=== PATIENT | female | born 1975 | race Caucasian/White ===

== ENCOUNTER → 2020-05-26 11:19 | Outpatient (BNVA) | payer OTHER, SELFPAY | PROVIDERS: PCP Family Medicine; Visit Provider Orthopaedic Surgery | DX: M75.42 Impingement syndrome of left shoulder (principal) | CPT/HCPCS: 20610; J1040 ==

== ENCOUNTER → 2020-07-21 09:04 | Outpatient (BNVA) | payer OTHER, SELFPAY | PROVIDERS: Visit Provider Orthopaedic Surgery | DX: Z76.89 Persons encountering health services in other specified circumstances (principal) ==

== ENCOUNTER 2020-07-30 06:13 | Day surgery (SDC) | payer OTHER, SELFPAY ==
[2020-07-27 08:05] VITALS: BMI 32.3
--- NOTE | 2020-07-29 11:47 | HO.ANESPROP2 ---
Documented by User: Kirstin Weldon 07/29/20 11:51 HPI - Anesthesia Eval Consult details Narrative: 45yo F for left Shoulder Arthroscopy,decompression subacromial, Fentanyl Allergy: Difficulty Breathing PMFSH Past Medical History Medical History Anemia Celiac disease GERD (gastroesophageal reflux disease) [place] disease History of headache History of postoperative nausea and vomiting Lab test negative for COVID-19 virus Personal history of tuberculosis Family History Family History Father No problems noted. Mother No problems noted. Surgical History Surgical History H/O colonoscopy History of esophagogastroduodenoscopy (EGD) Hx of tubal ligation Social History Social History Alcohol intake: current Alcohol intake frequency: a few times a month Smoking Status: Former smoker Tobacco Type: Cigarette Smoked in Last 30 Days: No Smoking Quit Date: 2002 Use of substances other than those prescribed or required for medical reasons: No Have you been hit, kicked, punched, or otherwise hurt by someone within the past year? If so, by whom?: No Advance Directives Information Provided: No Recently lost weight without trying: No Current occupation: Nurse Meds Allergies Allergy/AdvReac Type Severity Reaction Status Date / Time doxycycline Allergy Severe Anaphylaxis Verified 07/27/20 08:15 fentanyl Allergy Severe Difficulty Verified 07/27/20 08:15 Breathing penicillin G Allergy Intermediate Hives Verified 07/27/20 08:15 Sulfa (Sulfonamide Allergy Intermediate Hives Verified 07/27/20 08:15 Antibiotics) Home Medications Medication Instructions Recorded Confirmed Type ibuprofen PO 05/20/20 05/23/20 History dexmethylphenidate 25 mg 25 mg PO DAILY 05/26/20 History capsule,extended release -25 omeprazole 20 mg capsule,delayed 20 mg PO DAILY 05/26/20 07/27/20 History release cyclobenzaprine 1 tab PO BEDTIME PRN 07/27/20 07/27/20 History norgestimate-ethinyl estradiol 1 tab PO DAILY 12/07/20 12/07/20 History [Ortho Tri-Cyclen (28)] Exam Exam Date and Time: July 29, 2020 1147 Height,Weight and Vital Signs: Height 5 ft 6 in Weight 90.718 kg Assessment and Plan Assessment Anesthesia Assessment: Chart Reviewed Documented by User: Frankie Hendricks MD 07/30/20 10:36 HPI - Anesthesia Eval Consult details Narrative: Sensitive to opioids, not allergic per se PMFSH Past Medical History Medical History Anemia Celiac disease GERD (gastroesophageal reflux disease) [place] disease History of headache History of postoperative nausea and vomiting Lab test negative for COVID-19 virus Personal history of tuberculosis Family History Family History Father No problems noted. Mother No problems noted. Surgical History Surgical History H/O colonoscopy History of esophagogastroduodenoscopy (EGD) Hx of tubal ligation Social History Social History Alcohol intake: current Alcohol intake frequency: a few times a month Smoking Status: Former smoker Tobacco Type: Cigarette Smoked in Last 30 Days: No Smoking Quit Date: 2002 Use of substances other than those prescribed or required for medical reasons: No Have you been hit, kicked, punched, or otherwise hurt by someone within the past year? If so, by whom?: No Advance Directives Information Provided: No Recently lost weight without trying: No Current occupation: Nurse Meds Allergies Allergy/AdvReac Type Severity Reaction Status Date / Time doxycycline Allergy Severe Anaphylaxis Verified 07/27/20 08:15 fentanyl Allergy Severe Difficulty Verified 07/27/20 08:15 Breathing penicillin G Allergy Intermediate Hives Verified 07/27/20 08:15 Sulfa (Sulfonamide Allergy Intermediate Hives Verified 07/27/20 08:15 Antibiotics) Home Medications Medication Instructions Recorded Confirmed Type ibuprofen PO 05/20/20 05/23/20 History dexmethylphenidate 25 mg 25 mg PO DAILY 05/26/20 History capsule,extended release [id number] omeprazole 20 mg capsule,delayed 20 mg PO DAILY 05/26/20 07/27/20 History release cyclobenzaprine 1 tab PO BEDTIME PRN 07/27/20 07/27/20 History norgestimate-ethinyl estradiol 1 tab PO DAILY 07/27/20 07/27/20 History [Ortho Tri-Cyclen (28)] Assessment and Plan Assessment Anesthesia Assessment: Anesthesia Plan Discussed and Chart Reviewed Final Anesthetic Review NPO: Yes ASA Class: III Final Preanesthetic Review: No Changes in Pt Med Stat, Meds/Allgs Chart Reviewed, Consent Obtained/Reviewed and Anes Risks/Benef Reviewed Patient Risk: Intermediate Procedure Risk: Low Anesthetic Plan Anesthetic Plan: GA and Regional Block Disposition: Standard PACU
--- NOTE | 2020-07-29 14:30 | MHC.SHP ---
Pre-Procedural Eval Section A The patient is an INPATIENT: No Changes since office visit: No Cold of Flu in the past 2 weeks, No New Medical Problems, No Changes in Medication and No Patient answered all questions The History & Physical has been completed within 30 days and I have reviewed it.: Yes Section B Chief Complaint: impingement of left shoulder Allergies: Allergies Allergy/AdvReac Type Severity Reaction Status Date / Time doxycycline Allergy Severe Anaphylaxis Verified 07/27/20 08:15 fentanyl Allergy Severe Difficulty Verified 07/27/20 08:15 Breathing penicillin G Allergy Intermediate Hives Verified 07/27/20 08:15 Sulfa (Sulfonamide Allergy Intermediate Hives Verified 07/27/20 08:15 Antibiotics) Plan Patient has been examined and remains a candidate for the planned procedure
[2020-07-30] MEDS: Lactated Ringers 1,000 ML 100 ML IVCONT (07:00)
[2020-07-30 07:02] VITALS: BP 143/84; PULSE 88; RESP 20; TEMP 36.1
[2020-07-30] MEDS: Scopolamine 1.5 MG PATCH.TD.3 TRANSDERMA (07:08)
[2020-07-30 11:20] VITALS: BP 127/79; PULSE 97; RESP 16; TEMP 36.3; O2SAT 96
--- NOTE | 2020-07-30 11:21 | PM.PRCOR ---
Brief Operative Note Date of procedure: 07/30/20 Pre-op diagnosis: ROTATOR CUFF IMPINGEMNET LEFT SHOUDER Post-op diagnosis: same (WITH POSTERIOR LABRAL INJURY) Procedure: ARTHROSCOPIC SHOULDER SURGERY Anesthesia: GLMA and regional Surgeon: Mary Kay Cline Estimated blood loss (mL): 5 Pathology: none sent Condition: stable
[2020-07-30 11:25] VITALS: BP 134/89; PULSE 83; RESP 16; O2SAT 96
[2020-07-30] MEDS: Ketorolac Tromethamine 15 MG/ML VIAL IVPUSH (11:25)
[2020-07-30 11:30] VITALS: BP 120/34; PULSE 76; RESP 16; O2SAT 96
[2020-07-30 11:35] VITALS: BP 137/80; PULSE 75; RESP 16; O2SAT 97
[2020-07-30 11:50] VITALS: BP 143/68; PULSE 76; RESP 16; TEMP 36.3; O2SAT 96
--- NOTE | 2020-07-31 10:54 | OP_ITS ---
SURGEON: Mary Kay Cline MD PREOPERATIVE DIAGNOSIS: Rotator cuff impingement, left shoulder. POSTOPERATIVE DIAGNOSIS: PROCEDURE PERFORMED: 1. Glenohumeral arthroscopy and debridement of labrum. 2. Arthroscopic subacromial decompression, left shoulder. ESTIMATED BLOOD LOSS: COMPLICATIONS: ANESTHESIA: ASSISTANTS: SPECIMENS: POSTOPERATIVE DIAGNOSES: 1. Rotator cuff impingement, left shoulder. 2. Posterior labral injury, left shoulder. CLINICAL NOTE: This lady has had ongoing problems with pain and discomfort involving her left shoulder. She had failed nonoperative management. Therefore, after explaining the risks, benefits, and alternatives and answering all her questions, it was mutually agreed upon to carry out the following procedure. DESCRIPTION OF PROCEDURE: Under a regional block and general anesthetic, an EUA was performed and demonstrated full range of motion of the shoulder with no evidence of any instability. The patient was then placed in the right lateral decubitus position with the left arm up. The left shoulder was then prepped and draped in standard fashion. The arm was then placed in standard traction at 10 degrees of forward flexion, 35 degrees of abduction with approximately 12 pounds of traction. Surgical time-out was then performed. The patient was identified, procedure confirmed, site confirmed. Medical analogy and history were reviewed. No preoperative antibiotics were given. Standard DVT prophylaxis was in place. All other items were discussed and agreed upon. Standard posterior portal was established. The glenohumeral joint was entered atraumatically. Anterior portal was established from inside-out technique in standard fashion. Inspection of the joint demonstrated that the long head of the biceps was intact. The rotator cuff had some fraying, but was fully attached along the greater tuberosity posteriorly. There was a normal . The glenohumeral joint was intact. There was degenerative fraying of the posterior to superior and posterior aspect of the labrum. Using a full-radius resector, this was debrided. Now, the glenohumeral joint was intact. The undersurface of the rotator cuff was lightly debrided of loose fibers as well and therefore, we at this point terminated the glenohumeral portion of the procedure. Scope and instruments were withdrawn from the glenohumeral joint. The scope was reintroduced in the subacromial space. Starting with an Ultra-Cut followed by an ArthroCare and bur, the bursal tissue was cleared. The periosteum removed from the undersurface of the acromion. The AC joint was identified. The type 3 acromion was resected until the acromion was flat from anterior to posterior, medial to lateral with the appropriate amount of space for the rotator cuff. The distal end of the clavicle was then beveled. At this point, there was sufficient room for the rotator cuff. The CA ligament was released. All of the areas that could be cauterized , we then terminated the procedure. All scopes and instruments were withdrawn. Stab incisions were closed with interrupted 2-0 nylon. The arm was placed in the sling after it was taken out of traction. The patient's anesthesia was reversed and transferred supine to the room bed and taken to recovery room in good condition. Intraoperatively, there was minimal blood loss. No complications. MD ADRIANA Teran/EVETTE / [id number]
== END 2020-07-30 12:25 | disposition home or self-care (01) ==
PROVIDERS: PCP Family Medicine; Visit Provider Orthopaedic Surgery
PROC: (CPT 29805; principal; 2020-07-30 10:00)
DX: M75.42 Impingement syndrome of left shoulder (principal); M25.812 Other specified joint disorders, left shoulder; E80.4 Gilbert syndrome; D64.9 Anemia, unspecified; K90.0 Celiac disease; Z79.899 Other long term (current) drug therapy; Z87.891 Personal history of nicotine dependence; Z86.11 Personal history of tuberculosis; Z88.0 Allergy status to penicillin; Z88.2 Allergy status to sulfonamides
CPT/HCPCS: 29822; 29826; J0131; J0171; J1885; J2250; J2405; J3010

== ENCOUNTER → 2020-08-06 10:05 | Outpatient (BNVA) | payer OTHER, SELFPAY | PROVIDERS: PCP Family Medicine; Visit Provider Physician Assistant | DX: Z76.89 Persons encountering health services in other specified circumstances (principal) ==

== ENCOUNTER → 2020-09-01 10:35 | Outpatient (BNVA) | payer OTHER, SELFPAY | PROVIDERS: PCP Family Medicine; Visit Provider Orthopaedic Surgery | DX: Z76.89 Persons encountering health services in other specified circumstances (principal) ==

== ENCOUNTER 2020-11-27 03:52 | Emergency (ER) | payer OTHER, SELFPAY ==
--- NOTE | ~2020-11-27 | CT_ITS ---
EXAMINATION: CT ABDOMEN AND PELVIS WITH CONTRAST CLINICAL INFORMATION: Mid abdominal left lower quadrant pain COMPARISON: None available TECHNIQUE: Multidetector volumetric images were obtained from the superior aspect of the liver through the pubic symphysis following administration 85 mL of Omnipaque 350 intravenous contrast. Sagittal and coronal reformatted images were obtained on the technologist's workstation. Oral contrast: No This CT examination was performed using dose optimization techniques as appropriate, variously including the following: *Automated exposure control *Adjustment of mA and/or kV according to patient size (this includes techniques or standardized protocols for targeted exams where dose is matched to indication/reason for exam; i.e. extremities or head) *Use of iterative reconstruction technique DLP: 834 mGy-cm FINDINGS: LUNG BASES: The visualized lung bases are unremarkable. LIVER, GALLBLADDER, AND BILIARY TREE: Liver normal in size, contour and morphology. Diffuse hepatic steatosis. No focal liver lesions. No intra or extrahepatic biliary dilatation. Gallbladder unremarkable. PANCREAS: Unremarkable. SPLEEN: Unremarkable. ADRENAL GLANDS: Unremarkable. KIDNEYS AND URETERS: The kidneys are normal in size, shape, and attenuation. No hydronephrosis, hydroureter, or calculi seen. No perinephric stranding. BLADDER: Unremarkable. GASTROINTESTINAL TRACT: Scattered colonic diverticula are present. There is a short segment of the mid transverse colon demonstrating prominent submucosal edema and mild pericolic fat stranding centered about an inflamed diverticulum. Normal appendix. Stomach and small bowel unremarkable. ABDOMINAL WALL: No significant hernia is appreciated. LYMPH NODES: Normal. VASCULAR: Unremarkable. PELVIC VISCERA: Uterus and ovaries unremarkable. OSSEOUS STRUCTURES: Unremarkable. CT/CT abdomen pelvis w con IMPRESSION: Acute uncomplicated diverticulitis involving the mid transverse colon. Hepatic steatosis.
[2020-11-27 04:23] VITALS: BP 155/97; PULSE 103; RESP 15; TEMP 37; O2SAT 96; BMI 35.5
[2020-11-27 04:46] LABS: Basophils Percent Auto 0.3 % (0-2); Eosinophils Absolute Auto 0.1 X10*3/uL (0.0-0.4); Hematocrit 40.7 % (37-47); Hemoglobin 13.7 g/dl (12.0-16.0); Imm Gran Abs Auto 0.04 X10*3/uL (0.00-0.03); Imm Gran Pct Auto 0.3 % (0.0-0.4); Lymphocytes Absolute Auto 1.6 X10*3/uL (1.2-4.9); Lymphocytes Percent Auto 13.6 % (20-40); MANUAL DIFF FLAG NO; Mean Corpuscular HGB Conc 33.7 g/dl (31.0-35.0); Mean Corpuscular Hemoglobin 30.5 pg (27.0-33.0); Mean Corpuscular Volume 90.6 fL (80-98); Mean Platelet Volume 10.4 fL (9.4-12.3); Monocytes Absolute Auto 0.9 X10*3/uL (0.1-1.2); Monocytes Percent Auto 7.8 % (2-11); Neutrophils Absolute Auto 9.3 X10*3/uL (2.0-8.3); Platelet Count 224 X10*3/uL (160-400); Red Blood Count 4.49 X10*6/uL (4.20-5.50); Red Cell Distribution Width 11.9 % (11.0-16.0); White Blood Count 12.1 X10*3/uL (4.8-10.8)
--- NOTE | 2020-11-27 05:04 | ED.ABDPAIN ---
HPI - Abdominal Pain General Chief Complaint: Abdominal Pain Stated Complaint: ABD PAIN Time Seen by Provider: 11/27/20 04:15 Source: patient Mode of arrival: ambulatory History of Present Illness HPI narrative: This is a 45-year-old female with history of diabetes and celiac axis who presents with mild pain yesterday at mid abdomen, but then woke patient with significant nausea and increasing pain that is now described as constant nonradiating. She denies fevers but reports chills and denies any urinary pain/burning/frequency. In addition, she denies any constipation or diarrhea and states that she is no longer passing flatus. She denies any surgical abdomen history. Related Data Home Medications Medication Instructions Recorded Confirmed ibuprofen PO 05/20/20 05/23/20 dexmethylphenidate 25 mg 25 mg PO DAILY 05/26/20 capsule,extended release [id number] omeprazole 20 mg capsule,delayed 20 mg PO DAILY 05/26/20 07/27/20 release cyclobenzaprine 1 tab PO BEDTIME PRN 07/27/20 07/27/20 norgestimate-ethinyl estradiol 1 tab PO DAILY 07/27/20 07/27/20 [Ortho Tri-Cyclen (28)] Previous Rx's Medication Instructions Recorded methylprednisolone acetate 80 80 mg IM QAM #1 ml 05/26/20 mg/mL suspension for injection ibuprofen 800 mg PO Q8H #90 tab 07/30/20 oxycodone 10 mg PO 4-6XD #40 tab 07/30/20 ciprofloxacin HCl [Cipro] 500 mg PO Q12H 7 Days #14 tab 11/27/20 metronidazole [Flagyl] 500 mg PO Q8H 7 Days #21 tab 11/27/20 ondansetron HCl [Zofran] 4 mg PO Q8H PRN #7 tab 11/27/20 Allergies Allergy/AdvReac Type Severity Reaction Status Date / Time doxycycline Allergy Severe Anaphylaxis Verified 08/06/20 10:20 fentanyl Allergy Severe Difficulty Verified 08/06/20 10:20 Breathing penicillin G Allergy Intermediate Hives Verified 08/06/20 10:20 Sulfa (Sulfonamide Allergy Intermediate Hives Verified 08/06/20 10:20 Antibiotics) Review of Systems Review of Systems Pertinent positives and negatives as stated in HPI 10 point review of systems otherwise negative. Physical Exam Vital Signs: Vital Signs: Last Vital Signs Temp 98.8 F 11/27/20 05:27 Pulse 102 H 11/27/20 05:27 Resp 16 11/27/20 05:27 BP 148/85 H 11/27/20 05:27 Pulse Ox 98 11/27/20 05:27 Body Mass Index 35.5 VITAL SIGNS: Reviewed. GENERAL: Well developed, well nourished, in no acute distress. HEAD: Normocephalic/atraumatic NOSE: Nares patent bilateral OROPHARYNX: no oral lesions noted, posterior pharynx clear NECK: Supple, no adenopathy LUNGS: Normal breath sounds. SpO2<98> CARDIOVASCULAR: Regular rate and rhythm without noted murmurs, no JVD or lower extremity edema. ABDOMEN: Soft, tenderness in mid abdomen without rebound, distended with hypoactive bowel sounds. NEUROLOGIC: Alert and oriented x 4. Course Course Course Narrative: This is a 45-year-old female with history and clinical presentation suggestive of possible strangulated ventral hernia, less likely SBO, or possible diverticulitis. Review of all investigations with findings consistent with diverticulitis. Patient received pain medications, and initial antibiotics. She will be discharged home in stable condition the complete course antibiotics as well as an antiemetic. MDM - Abdominal Pain Lab Data Result diagrams: 11/27/20 04:40 11/27/20 04:40 Labs: Lab Results 11/27/20 11/27/20 11/27/20 Range/Units 04:40 04:40 04:40 WBC 12.1 H (4.8-10.8) X10*3/uL RBC 4.49 (4.20-5.50) X10*6/uL Hgb 13.7 (12.0-16.0) g/dl Hct 40.7 (37-47) % MCV 90.6 (80-98) fL MCH 30.5 (27.0-33.0) pg MCHC 33.7 (31.0-35.0) g/dl RDW 11.9 (11.0-16.0) % Plt Count 224 (160-400) X10*3/uL MPV 10.4 (9.4-12.3) fL Immature Gran % (Auto) 0.3 (0.0-0.4) % Neut % (Auto) 77.0 H (45-73) % Lymph % (Auto) 13.6 L (20-40) % [place] % (Auto) 7.8 (2-11) % Eos % (Auto) 1.0 (0-4) % Baso % (Auto) 0.3 (0-2) % Lymph # (Auto) 1.6 (1.2-4.9) X10*3/uL [place] # (Auto) 0.9 (0.1-1.2) X10*3/uL Eos # (Auto) 0.1 (0.0-0.4) X10*3/uL Baso # (Auto) 0.0 (0.0-0.2) X10*3/uL Abs Immat Gran (auto) 0.04 H (0.00-0.03) X10*3/uL Absolute Neuts (auto) 9.3 H (2.0-8.3) X10*3/uL Absolute Nucleated RBC 0.000 (0.0-0.012) X10*3/uL Nucleated RBC % (auto) 0.0 (0.0-0.2) /100WBC Hold Blue Top SEE NOTE Sodium 137 (135-145) mmol/L Potassium 4.2 (3.3-5.1) mmol/L Chloride 103 (96-108) mmol/L Carbon Dioxide 23 (22-29) mmol/L Anion Gap 15 (12-20) BUN 13 (9-16) mg/dL Creatinine 0.71 (0.5-1.4) mg/dL Estim Creat Clear Calc 120.4 Estimated GFR > 60 Random Glucose 176 H (60-115) mg/dL Calcium 9.2 (8.4-10.2) mg/dL Total Bilirubin 0.9 (0.0-1.0) mg/dL AST 30 (5-31) U/L ALT 46 H (0-31) U/L Alkaline Phosphatase 87 (39-117) U/L Total Protein 6.6 (6.5-8.0) g/dL Albumin 4.2 (3.5-5.0) g/dL Lipase 64 (8-78) U/L Urine Color Urine Appearance Urine pH (5.0-8.0) Ur Specific [place] (1.005-1.025) Urine Protein (NEG-TRACE) MG/DL Urine Glucose (UA) (NEG) MG/DL Urine Ketones (NEG) MG/DL Urine Blood (NEG) Urine Nitrite (NEG) Ur Leukocyte Esterase (NEG) Urine Test (NEGATIVE) 11/27/20 11/27/20 Range/Units 05:29 05:29 WBC (4.8-10.8) X10*3/uL RBC (4.20-5.50) X10*6/uL Hgb (12.0-16.0) g/dl Hct (37-47) % MCV (80-98) fL MCH (27.0-33.0) pg MCHC (31.0-35.0) g/dl RDW (11.0-16.0) % Plt Count (160-400) X10*3/uL MPV (9.4-12.3) fL Immature Gran % (Auto) (0.0-0.4) % Neut % (Auto) (45-73) % Lymph % (Auto) (20-40) % [place] % (Auto) (2-11) % Eos % (Auto) (0-4) % Baso % (Auto) (0-2) % Lymph # (Auto) (1.2-4.9) X10*3/uL [place] # (Auto) (0.1-1.2) X10*3/uL Eos # (Auto) (0.0-0.4) X10*3/uL Baso # (Auto) (0.0-0.2) X10*3/uL Abs Immat Gran (auto) (0.00-0.03) X10*3/uL Absolute Neuts (auto) (2.0-8.3) X10*3/uL Absolute Nucleated RBC (0.0-0.012) X10*3/uL Nucleated RBC % (auto) (0.0-0.2) /100WBC Hold Blue Top Sodium (135-145) mmol/L Potassium (3.3-5.1) mmol/L Chloride (96-108) mmol/L Carbon Dioxide (22-29) mmol/L Anion Gap (12-20) BUN (9-16) mg/dL Creatinine (0.5-1.4) mg/dL Estim Creat Clear Calc Estimated GFR Random Glucose (60-115) mg/dL Calcium (8.4-10.2) mg/dL Total Bilirubin (0.0-1.0) mg/dL AST (5-31) U/L ALT (0-31) U/L Alkaline Phosphatase (39-117) U/L Total Protein (6.5-8.0) g/dL Albumin (3.5-5.0) g/dL Lipase (8-78) U/L Urine Color YELLOW Urine Appearance CLEAR Urine pH 6.0 (5.0-8.0) Ur Specific [place] 1.025 (1.005-1.025) Urine Protein NEG (NEG-TRACE) MG/DL Urine Glucose (UA) 250 H (NEG) MG/DL Urine Ketones 40 (NEG) MG/DL Urine Blood NEG (NEG) Urine Nitrite NEG (NEG) Ur Leukocyte Esterase NEG (NEG) Urine Test NEGATIVE (NEGATIVE) Discharge Plan Discharge Clinical Impression: Diverticulitis Patient Disposition: Home, Self-Care Instructions: Diverticulitis (ED), Diverticulitis Diet (ED) Additional Instructions: Please follow-up with their primary care provider in 2-3 days for re-evaluation. We will need discussed possible follow-up colonoscopy in 6 weeks after clearing this episode of diverticulitis. Do not hesitate to return to the emergency department should you develop any acute worsening of symptoms. Prescriptions: New ciprofloxacin HCl [Cipro] 500 mg tablet 500 mg PO Q12H 7 Days Qty: 14 RF: 0 metronidazole [Flagyl] 500 mg tablet 500 mg PO Q8H 7 Days Qty: 21 RF: 0 ondansetron HCl [Zofran] 4 mg tablet 4 mg PO Q8H PRN (Reason: nausea and vomiting) Qty: 7 RF: 0 No Action cyclobenzaprine 10 mg tablet 1 tab PO BEDTIME PRN (Reason: Muscle Spasm) RF: 0 norgestimate-ethinyl estradiol [Ortho Tri-Cyclen (28)] 0.18/0.215/0.25 mg-35 mcg (28) Tablet 1 tab PO DAILY RF: 0 oxycodone 10 mg tablet 10 mg PO 4-6XD Qty: 40 RF: 0 ibuprofen 800 mg tablet 800 mg PO Q8H Qty: 90 RF: 2 ibuprofen PO RF: 0 methylprednisolone acetate [Depo-Medrol] 80 mg/mL suspension 80 mg IM QAM Qty: 1 RF: 0 Referrals: Radha Price, [facility] [Primary Care Provider] - 2 days (Re-evaluation after being diagnosed with diverticulitis on 11/27.) [facility] Past Medical History Source: nursing notes reviewed Medical History Anemia Celiac disease Celiac disease Diabetes GERD (gastroesophageal reflux disease) [place] disease History of headache History of postoperative nausea and vomiting Lab test negative for COVID-19 virus Personal history of tuberculosis Surgical History H/O colonoscopy History of esophagogastroduodenoscopy (EGD) Hx of tubal ligation Family History Family History Father No problems noted. Mother No problems noted. Social History Social History Alcohol intake: current Alcohol intake frequency: holidays/special occasions only Smoking Status: Never smoker Tobacco Type: Cigarette Use of substances other than those prescribed or required for medical reasons: No Advance Directives: No Current occupation: Nurse
[2020-11-27 05:19] LABS: Alanine Aminotransferase 46 U/L (0-31); Albumin Level 4.2 g/dL (3.5-5.0); Alkaline Phosphatase 87 U/L (39-117); Anion Gap 15 (12-20); Aspartate Amino Transferase 30 U/L (5-31); Bilirubin Total 0.9 mg/dL (0.0-1.0); Blood Urea Nitrogen 13 mg/dL (9-16); Calcium 9.2 mg/dL (8.4-10.2); Carbon Dioxide 23 mmol/L (22-29); Chloride 103 mmol/L (96-108); Creatinine Clr Calc Pharmacy 120.4; Estimated Glomerular Filt Rate > 60; Glucose Random 176 mg/dL (60-115); Lipase 64 U/L (8-78); Potassium 4.2 mmol/L (3.3-5.1); Sodium 137 mmol/L (135-145); Total Protein 6.6 g/dL (6.5-8.0)
[2020-11-27 05:27] VITALS: BP 148/85; PULSE 102; RESP 16; TEMP 37.1; O2SAT 98
[2020-11-27 05:35] LABS: Glucose Urine UA 250 MG/DL (NEG); Leukocyte Esterase Urine NEG (NEG); Nitrite Urine NEG (NEG); Specific Gravity - Urine 1.025 (1.005-1.025); Urine Blood NEG (NEG); Urine Ketones 40 MG/DL (NEG); Urine Protein NEG (NEG-TRACE)
[2020-11-27 05:38] LABS: Appearance Urine CLEAR; Color Urine YELLOW; UPreg QC Valid YES; Urine Pregnancy NEGATIVE (NEGATIVE)
[2020-11-27] MEDS: Ketorolac Tromethamine 15 MG/ML VIAL IVPUSH (05:46)
[2020-11-27] MEDS: 0.9 % Sodium Chloride 1,000 ML 999 ML IV (05:46)
[2020-11-27] MEDS: iohexoL 350 MG/ML 100 ML INFUS..BTL 85 ML IV (06:14)
[2020-11-27] MEDS: metroNIDAZOLE 500 MG TABLET PO (07:14)
[2020-11-27] MEDS: levoFLOXacin/D5W 500 MG/100 ML PIGGYBACK 100 MG IV (07:14)
== END 2020-11-27 08:22 | disposition home or self-care (01) ==
PROVIDERS: Emergency Provider Student in an Organized Health Care Education/Training Program; PCP Nurse Practitioner Family
DX: K57.32 Diverticulitis of large intestine without perforation or abscess without bleeding (principal); R10.9 Unspecified abdominal pain; R11.2 Nausea with vomiting, unspecified; Z79.899 Other long term (current) drug therapy
CPT/HCPCS: 36415; 74177; 80053; 81003; 81025; 83690; 85025; 96361; 96365; 96375; 99284; J1885; J1956; Q9967

== ENCOUNTER 2020-12-04 15:07 | Outpatient (REF) | payer OTHER, SELFPAY ==
--- NOTE | ~2020-12-04 | CT_ITS ---
EXAMINATION: CT ABDOMEN AND PELVIS WITH CONTRAST CLINICAL INFORMATION: Follow-up for diverticulitis COMPARISON: CT of the abdomen and pelvis 11/27/2020 TECHNIQUE: Multidetector volumetric images were obtained from the superior aspect of the liver through the pubic symphysis following administration 85 mL of Omnipaque 350 intravenous contrast. Sagittal and coronal reformatted images were obtained on the technologist's workstation. Oral contrast: No This CT examination was performed using dose optimization techniques as appropriate, variously including the following: *Automated exposure control *Adjustment of mA and/or kV according to patient size (this includes techniques or standardized protocols for targeted exams where dose is matched to indication/reason for exam; i.e. extremities or head) *Use of iterative reconstruction technique DLP: 806 mGy-cm FINDINGS: LUNG BASES: The visualized lung bases are unremarkable. LIVER, GALLBLADDER, AND BILIARY TREE: The liver is normal in and shape. Again demonstrated is diffusely decreased attenuation, compatible with hepatic steatosis. There are areas of focal sparing around the gallbladder fossa. No focal hepatic lesion or biliary ductal dilatation is present. The gallbladder is unremarkable with no evidence of radiopaque gallstones, gallbladder wall thickening, or obvious pericholecystic inflammatory changes. PANCREAS: Unremarkable. SPLEEN: Unremarkable. ADRENAL GLANDS: Unremarkable. KIDNEYS AND URETERS: The kidneys are normal in size, shape, and attenuation. No hydronephrosis, hydroureter, or calculi seen. No perinephric stranding. BLADDER: Unremarkable. GASTROINTESTINAL TRACT: The stomach and small bowel are normal. No evidence of obstruction. Normal appendix. Again demonstrated are scattered diverticula throughout the colon. Decreased amount of thickening and pericolic fat stranding around the mid transverse colon. ABDOMINAL WALL: No significant hernia is appreciated. LYMPH NODES: Normal. VASCULAR: Unremarkable. PELVIC VISCERA: The uterus and adnexa are unremarkable. OSSEOUS STRUCTURES: No acute or suspicious osseous abnormality. CT/CT abdomen pelvis w con IMPRESSION: Decreasing inflammation around the mid transverse colon at the site of uncomplicated diverticulitis as described on the prior study. No evidence of perforation or abscess formation. Redemonstration of hepatic steatosis.
[2020-12-04] MEDS: iohexoL 350 MG/ML 100 ML INFUS..BTL IV (17:47)
[2020-12-04] MEDS: Barium Sulfate Oral (Vanilla) 450 ML ORAL.SUSP 900 ML PO (17:49)
== END 2020-12-04 15:08 | disposition home or self-care (01) ==
LOC: HO.CT 15:07
PROVIDERS: Visit Provider Nurse Practitioner Primary Care
DX: K57.92 Diverticulitis of intestine, part unspecified, without perforation or abscess without bleeding (principal)
CPT/HCPCS: 74177; Q9967

== ENCOUNTER 2024-10-08 13:56 | Outpatient (REF) | payer OTHER, SELFPAY ==
--- OUTSIDE RECORDS SUMMARY | 2024-10-08 14:58 | XMS_ITS ---
Author Organization [facility] Address [address] [place] [address] Care Team Providers Care Template Inspector Name Role Phone ZachShruthi sheehan Primary Care Provider Derek William [phone] ALLERGIES Allergen (clinical drug ingredient) Drug/Non Drug Allergy documented on EMR Reaction Allergy Type Onset Date Status sulfacetamide Sulfacetamide Sodium Unknown Drug Allergy Active REASON FOR VISIT Patient presents today for a screening colon MEDICATIONS Medication SIG (Take, Route, Frequency, Duration) Notes Start Date End Date Status Dupixent 300 MG/2ML Subcutaneous for 28 Active Meloxicam 15 MG Oral for 30 Ac tive Omeprazole 20 MG TAKE 1 CAPSULE BY [facility] TWICE A DAY Orally Once a day Active Ozempic (2 MG/DOSE) 8 MG/3ML INJECT 2 MG EVERY WEEK BY SUBCUTANEOUS ROUTE Subcutaneous for 28 Active Biotin Active Aspirin 81 81 MG 1 tablet Orally Once a day for 30 day(s) Active Atorvastatin Calcium 40 MG 1 tablet Oral ly Once a day for 30 day(s) Active SOCIAL HISTORY Tobacco Use: Social History Observation Description Date Details (start date - stop date) Former Smoker NA - NA Sex Assigned At : Social History Observation Description Sex Assigned At Unknown Tobacco Use/Smoking Question Answer Notes Patient is a former smoker How long has it been since you last smoked? 5-10 years Alcohol Screen Question Answer Notes Did you have a drink contain ing alcohol in the past year? Yes How often did you have a dri nk containing alcohol in the past year? 2 to 4 times a month (2 points) How many drinks did you have on a typical day when you were drinking in the past year? 3 or 4 drinks (1 point) Points 3 Interpretation Positive PROBLEMS Problem Type ICD Code Onset Dates Problem Status W/U Status Risk SNOMED Code Notes Problem Constipation (K59.00) Active confirmed Constipation (42779776) Problem Screen for colon cancer (Z12.11) Active confirmed Screening fo r malignant neoplasm of colon (703954091) VITAL SIGNS BMI 32.91 kg/m2 10/08/2024 Blood pressure systolic 00 mm Hg 10/08/19 25 Blood pressure diastolic 00 mm Hg 025 Height 66.5 in 10/08/2024 Weight 207 lbs 10/08/2024 Encounters Encounter Location Date Provider Diagnosis [facility] [address] [place] [address] 10/08/2024 Derek Villaseñor Gastroesophageal ref lux disease, esophagitis presence not specified K21.9 ; Family history of colon cancer Z80.0 ; Celiac disease K90.0 ; Constipation K59.00 and Screen for colon cancer Z12.11 ASSESSMENTS Encounter Date Diagnosis Assessment Notes Treatment Notes Treatment Clinical Notes 10/08/2024 Gastroesophageal reflux disease, esophagitis presence not specified (ICD-10 - K21.9) 10/08/2024 Family history of colon cancer (ICD-10 - Z80.0) 10/08/2024 Celiac disease (ICD- 10 - K90.0) 10/08/2024 Constipation (ICD-10 - K59.00) We can try Linzess for constipation at some point if need be 10/08/2024 Screen for colon cancer (ICD-10 - Z12.11) Do not take the Ozempic for at least 7 days before the procedures Stop aspirin for 3 days before the procedures PLAN OF TREATMENT Treatment Notes Assessment Notes Constipation We can try Linzess f or constipation at some point if need be Screen for colon cancer Do not take the Ozempic for at least 7 days before the procedures Stop aspirin for 3 days before the procedures Pending Test Test Name Order Date CELIAC PANEL #10 10/08/2024 Future Test Test Name Order Date UPPER GI ENDOSCOPY 10/08/2024 COLONOSCOPY 10/08/2024 Next Appt Details Provider Name:Derek Villaseñor , 12/16/2024 02:40:00 PM, [address] [facility] , [place], [place], [phone],
--- OUTSIDE RECORDS SUMMARY | 2024-10-08 14:58 | XMS_ITS ---
Author Name [facility] Organization Unknown History of Medication Use Medication Directions Dispensed Refills Start Date End Date Stat us omeprazole 20 mg capsule,delayed release TAKE 1 CAPSULE BY MOUTH TWICE A DAY active fluconazole 150 mg tablet TAKE 1 TABLET BY MOUTH EVERY 72 HOURS 3 completed lidocaine (PF) 10 mg/mL (1 %) injection solution active dexmethylphenidate ER 15 mg capsule,extended release [id number] TAKE 1 CAPSULE BY MOUTH EVERY MORNING 3 completed Kenalog 40 mg/mL suspension for injection active towboat pilot covid-19 at-home test kit 3 active Kenalog 40 mg/mL suspension for injection Take 1 mL by injection route. 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
--- OUTSIDE RECORDS SUMMARY | 2024-10-08 14:58 | XMS_ITS | Patient Health Record ---
Author Organization [facility] Address [address] [place] [address] Care Team Providers Care Oracle Database Architect Name Role Phone IrmaShruthi calvert Primary Care Provider Derek William [phone] ALLERGIES Allergen (clinical drug ingredient) Drug/Non Drug Allergy documented on EMR Reaction Allergy Type Onset Date Status sulfacetamide Sulfacetamide Sodium Unknown Drug Allergy Active REASON FOR REFERRAL No Information MEDICATIONS Medication SIG (Take, Route, Frequency, Duration) Notes Start Date End Date Status Dupixent 300 MG/2ML Subcutaneous for 28 Active Meloxicam 15 MG Oral for 30 Ac tive Omeprazole 20 MG TAKE 1 CAPSULE BY [facility] TWICE A DAY Orally Once a day [...] W/U Status Risk SNOMED Code Notes Problem Gastroesophageal reflux disease, esophagitis presence not specified (K21.9) Active confirmed 462679208 Problem Rectal bleeding (K62.5) Active confirmed 60992430 Problem Family history of colon cancer (Z80.0) Active confirmed 386815025 Problem Elevated liver enzymes (R74.8) Active confirmed Elevated patricia er enzymes level (724742360) Problem Celiac disease (K90.0) Active confirmed 588562988 Problem Constipation (K59.00) Active confirmed Constipation (21890279) Problem Screen for colon cancer (Z12.11) Active confirmed Screening fo r malignant neoplasm of colon (769506217) VITAL SIGNS Blood pressure diastolic 00 mm Hg 10/08/2024 Height 66.5 in 10/08/2024 Blood pressure systolic 00 mm Hg 10/08/2024 Weight 207 lbs 10/08/2024 BMI 32.91 kg/m2 10/08/2024 Encounters Encounter Location Date Provider Diagnosis [facility] [address] [place] [address] 10/08/2024 Derek Villaseñor Gastroesophageal ref lux disease, [...] days before the procedures PLAN OF TREATMENT Pending Test Test Name Order Date LIVER PROFILE 06/25/2019 CELIAC PANEL #10 10/08/2024 Future Test Test Name Order Date UPPER GI ENDOSCOPY 06/25/2019 COLONOSCOPY 06/25/2019 UPPER GI ENDOSCOPY 10/08/2024 COLONOSCOPY 10/08/2024 Next Appt Details Provider Name:Derek Villaseñor , 12/16/2024 02:40:00 PM, [address] [place] [address] , [place], [place], [phone], Insurance Providers Payer Name Payer Address Payer Phone Subscriber Number Group Number Insured Name Patient Relationship to Insured Coverage Start Date Coverage End Date [facility] [address] [place] [phone] [id number] MEDELLINASHLEE HOLCOMB Self - patient is the insured [facility] [address] [place] [phone] [id number] ASHLEE MEDELLIN Self - patient is the insured 3 MEDICAL (GENERAL) HISTORY Medical History History ICD Code Denies [place],CVA,Lung disease,renal disease ADHD Celiac disease based on a ti ssue transglutaminase level of over 200 in 2017 with associated symptoms of diarrhea and joint swelling-she declined upper endoscopy at that time with Dr. Hillman. She finally went on a strict gluten-free diet in February of 2019 and a followup tissue transglutaminase antibody was only 1--her symptoms of diarrhea and joint problems resolved on a gluten-free diet as well GERD--EGD 08/2019 Gilbert's Disease NIDDM Diverticulitis 2019 Colonoscopy 08/2019 Narrowing of vertebrobasila r arteries ---dizziness, migraines---sees a neurologist and vascular surgeon--just being treated with aspirin 81mg--no sugery Surgical History Surgery Date(Month/Year) Tubal ligation 2003 shoulder decompression left
[2024-10-09 21:18] LABS: Gliadin Deamidated IgA Ab <1.0 U/mL; Gliadin Deamidated IgG Ab <1.0 U/mL
[2024-10-10 22:48] LABS: Endomysial IgA Antibody Negative (Negative)
[2024-10-10 23:44] LABS: Transglutaminase Ab IgG <1.0 U/mL; Transglutaminase IgA <1.0 U/mL
[2024-10-12 11:58] LABS: Immunoglobulin A 201 mg/dL (47-310)
== END 2024-10-08 13:57 | disposition home or self-care (01) ==
LOC: HO.LAB 13:56
PROVIDERS: PCP Nurse Practitioner Family; Visit Provider Internal Medicine
DX: K90.0 Celiac disease (principal)
CPT/HCPCS: 36415; 82784; 86231; 86258; 86364

== ENCOUNTER 2024-12-16 11:24 | Day surgery (SDC) | payer OTHER, SELFPAY ==
--- OUTSIDE RECORDS SUMMARY | 2024-10-17 13:28 | XMS_ITS | Patient Health Record ---
Author Organization [facility] Address [address] [place] [address] Care Team Providers Care Fuel Buyer Name Role Phone Shruthi Rosales Primary Care Provider Derek William [phone] ALLERGIES Allergen (clinical drug ingredient) Drug/Non Drug Allergy documented on EMR Reaction Allergy Type Onset Date Status sulfacetamide Sulfacetamide Sodium Unknown Drug Allergy Active RESULTS Component Value Reference Range Notes Immunoglobulin A Reviewed date:10/15/2024 06:52:28 PM Interpretation: Performing Lab:[address] [address] Notes/Report: Immunoglobulin A 201 47-310 mg/dL THIS TEST WAS PERFORMED AT: [facility] [address] [place] [phone] SOPHIE MORALEZ MD Transglutaminase Ab IgG Reviewed date:10/15/2024 06:52:34 PM Interpretation: Performing Lab:[address] [address] Notes/Report: Transglutaminase Ab IgG <1.0 Value Interpretation ----- <15.0 Antibody not detected > or = 15.0 Antibody detected THIS TEST WAS PERFORMED AT: [facility] [address] [place] [phone] SOPHIE MORALEZ MD Transglutaminase IgA Reviewed date:10/15/2024 06:52:39 PM Interpretation: Performing Lab:[facility] [address] Notes/Report: Transglutaminase IgA <1.0 Value Interpretation ----- <15.0 Antibody not detected > or = 15.0 Antibody detected THIS TEST WAS PERFORMED AT: [facility] [address] [place] [phone] SOPHIE MORALEZ MD Gliadin Ab Panel Reviewed date:10/15/2024 06:52:47 PM Interpretation: Performing Lab:[facility], [address] [place] [phone] Notes/Report: Gliadin Deamidated IgA Ab <1.0 Value Interpretation ----- <15.0 Antibody not detected > or = 15.0 Antibody detected Gliadin Deamidated IgG Ab <1.0 Value Interpretation ----- <15.0 Antibody not detected > or = 15.0 Antibody detected THIS TEST WAS PERFORMED AT: [facility] [address] [place] [phone] SOPHIE MORALEZ MD Endomysial IgA rflx Titer Reviewed date:10/15/2024 06:52:57 PM Interpretation: Performing Lab:[facility], [address] [place] [phone] Notes/Report: Endomysial IgA Antibody Negative Negative THIS TEST WAS PERFORMED AT: [facility]/[address] [address] BLAYNE TAVERA MD,PHD Endomysial Titer TNP REASON FOR REFERRAL No Information MEDICATIONS Medication SIG (Take, Route, Frequency, Duration) Notes Start Date End Date Status Linzess 145 MCG 1 capsule at least 3 0 minutes before the first meal of the day on an empty stomach Orally Once a day for 30 day(s) 10/13/2024 Active Dupixent 300 MG/2ML Subcutaneous for 28 Active Meloxicam 15 MG Oral for 30 Ac tive Omeprazole 20 MG TAKE 1 CAPSULE BY [facility] TWICE A DAY Orally Once a day [...] W/U Status Risk SNOMED Code Notes Problem Rectal bleeding (K62.5) Active confirmed 45356304 Problem Constipation (K59.00) Active confirmed Constipation (35606461) Problem Celiac disease (K90.0) Active confirmed 096271835 Problem Screen for colon cancer (Z12.11) Active confirmed Screening fo r malignant neoplasm of colon (693109529) Problem Elevated liver enzymes (R74.8) Active confirmed Elevated patricia er enzymes level (854328943) Problem Gastroesophageal reflux disease, esophagitis presence not specified (K21.9) Active confirmed 661438994 Problem Family history of colon cancer (Z80.0) Active confirmed 796547456 VITAL SIGNS Blood pressure diastolic 00 mm Hg 10/08/2024 Height 66.5 in 10/08/2024 Blood pressure systolic 00 mm Hg 10/08/2024 Weight 207 lbs 10/08/2024 BMI 32.91 kg/m2 10/08/2024 Encounters Encounter Location Date Provider Diagnosis [facility] [address] [place] [address] 10/08/2024 Derek Villaseñor Gastroesophageal ref lux disease, esophagitis presence not specified K21.9 ; Family history of colon cancer Z80.0 ; Celiac disease K90.0 ; Constipation K59.00 and Screen for colon cancer Z12.11 [facility] [address] [place] [address] 10/11/2024 Derek Villaseñor ASSESSMENTS Encounter Date Diagnosis Assessment Notes Treatment [...] COLONOSCOPY 10/08/2024 Next Appt Details Provider Name:Derek Giraldo Charleen , 12/16/2024 02:40:00 PM, [address] [place] [address] , [place], [place], [phone], Insurance Providers Payer Name Payer Address Payer Phone Subscriber Number Group Number Insured Name Patient Relationship to Insured Coverage Start Date Coverage End Date [address] [phone] [id number] ASHLEE MEDELLIN Self - patient is the insured [employer] [address] [place] [phone] [id number] ASHLEE MEDELLIN Self - patient is the insured 3 MEDICAL (GENERAL) HISTORY Medical History History ICD Code Denies [place],CVA,Lung disease,renal disease ADHD Celiac disease based on [...] sugery Surgical History Surgery Date(Month/Year) Tubal ligation 2002 shoulder decompression left
--- OUTSIDE RECORDS SUMMARY | 2024-10-17 13:28 | XMS_ITS ---
Author Organization [facility] Address [address] [place] [address] Care Team Providers Care Consumer Educator Name Role Phone ZachShruthi sheehan Primary Care Provider Derek William [phone] ALLERGIES Allergen (clinical drug ingredient) Drug/Non Drug [...] Omeprazole 20 MG TAKE 1 CAPSULE BY [facility] TWICE A DAY Orally Once a [...] Notes Problem Constipation (K59.00) Active confirmed Constipation (94586236) Problem Screen for colon cancer (Z12.11) Active confirmed Screening fo r malignant neoplasm of colon (530913927) VITAL SIGNS Blood pressure systolic 00 mm Hg 10/08/19 25 Blood pressure diastolic 00 mm Hg 025 Height 66.5 in 10/08/2024 Weight 207 lbs 10/08/2024 BMI 32.91 kg/m2 10/08/2024 Encounters Encounter Location Date Provider Diagnosis [facility] [address] [place] [address] 10/08/2024 Derek Villaseñor Gastroesophageal ref lux disease, [...] Name:Derek Villaseñor , 12/16/2024 02:40:00 PM, [address] [facility] , [place], [place], [phone],
--- OUTSIDE RECORDS SUMMARY | 2024-10-17 13:28 | XMS_ITS ---
Author Organization [facility] Address [address] [place] [address] Care Team Providers Care Ceramic Coater Name Role Phone ZachShruthi sheehan Primary Care Provider Derek William [facility] [phone] REASON FOR VISIT celiac negative MEDICATIONS Medication SIG (Take, Route, Fr equency, Duration) Notes Start Date End Date Status Linzess 145 MCG 1 capsule at least 3 0 minutes before the first meal of the day on an empty stomach Orally Once a day for 30 day(s) 10/13/2024 Active Encounters Encounter Location Date Provider Diagnosis [facility] [address] [place] [address] 10/11/2024 Derek Villaseñor PLAN OF TREATMENT Medication Medication Name Sig Start Date Stop Date Notes Linzess 145 MCG 1 capsule at least 3 0 minutes before the first meal of the day on an empty stomach Orally Once a day for 30 day(s) 10/13/2024 Next Appt Details Provider Name:Derek Villaseñor , 12/16/2024 02:40:00 PM, [address] [place] [address] , [place], [place], [phone],
[2024-12-12 14:27] VITALS: BMI 33.4
--- NOTE | 2024-12-13 09:33 | P.CONAN_ITS ---
Documented by User: Kirstin Weldon NP 12/13/24 09:36 HPI - Anesthesia Eval Consult details Narrative: 49yo F for Colonoscopy Anesthesia Pre-Procedure Meds Is the patient on any of the following meds?: GLP1/DPP4 PMFSH Active Problems Active Problems: All Active Problems S/P shoulder surgery (Acute) Rotator cuff impingement syndrome of left shoulder (Acute) Past Medical History Medical History (Updated 12/12/24 @ 14:25 by Nahed Cannon RN) Vertebral artery narrowing ADHD (attention deficit hyperactivity disorder) Celiac disease Diabetes History of postoperative nausea and vomiting Anemia GERD (gastroesophageal reflux disease) [place] disease History of headache Lab test negative for COVID-19 virus Personal history of tuberculosis Celiac disease Family History Family History Father No problems noted. Mother No problems noted. Surgical History Surgical History (Updated 12/12/24 @ 14:26 by Nahed Cannon RN) Hx of shoulder surgery Hx of tubal ligation History of esophagogastroduodenoscopy (EGD) H/O colonoscopy Social History Social History Alcohol intake: current Alcohol intake frequency: holidays/special occasions only Patient Tobacco Use Status: Never used Tobacco Use of substances other than those prescribed or required for medical reasons: No Advance Directives: No Advance Directives Information Provided: Yes Current occupation: Nurse Meds Allergies Allergy/AdvReac Type Severity Reaction Status Date / Time doxycycline Allergy Severe Anaphylaxis Verified 08/06/20 10:20 penicillin G Allergy Intermediate Hives Verified 08/06/20 10:20 Sulfa (Sulfonamide Allergy Intermediate Hives Verified 08/06/20 10:20 Antibiotics) acetaminophen [From Vicodin] AdvReac Intermediate respiratory Verified 12/16/24 11:43 depression hydrocodone [From Vicodin] AdvReac Intermediate respiratory Verified 12/16/24 11:43 depression Home Medications ?Medication ?Instructions ?Recorded ?Confirmed ?Last Taken ?Type omeprazole 20 mg capsule,delayed 20 mg PO BID 05/26/20 12/16/24 Unknown History release aspirin 81 mg tablet,delayed 81 mg PO DAILY 12/12/24 12/16/24 12/02/24 History release atorvastatin 40 mg tablet 40 mg PO BEDTIME 12/12/24 12/16/24 Unknown History biotin 12/12/24 Unknown History dupilumab 300 mg/2 mL subcutaneous 300 mg subcut Q2W 12/12/24 Unknown History pen injector (Dupixent) meloxicam 15 mg tablet 15 mg PO DAILY 12/12/24 12/16/24 Unknown History semaglutide 2 mg/dose (8 mg/3 mL) 2 mg subcut QWEEK 12/12/24 12/16/24 12/07/24 History subcutaneous pen injector (Ozempic) Exam Height,Weight and Vital Signs: Height 5 ft 6 in Weight 93.894 kg Assessment and Plan Assessment Anesthesia Assessment: Chart Reviewed Documented by User: Viral Montes De Oca MD 12/16/24 12:52 PMFSH Past Medical History Medical History (Updated 12/12/24 @ 14:25 by Nahed Cannon RN) Vertebral artery narrowing ADHD (attention deficit hyperactivity disorder) Celiac disease Diabetes History of postoperative nausea and vomiting Anemia GERD (gastroesophageal reflux disease) [place] disease History of headache Lab test negative for COVID-19 virus Personal history of tuberculosis Celiac disease Family History Family History Father No problems noted. Mother No problems noted. Family history of problems with anesthesia: No Surgical History Surgical History (Updated 12/12/24 @ 14:26 by Nahed Cannon RN) Hx of shoulder surgery Hx of tubal ligation History of esophagogastroduodenoscopy (EGD) H/O colonoscopy History of Problems with Anesthesia: No Social History Social History Alcohol intake: current Alcohol intake frequency: holidays/special occasions only Patient Tobacco Use Status: Never used Tobacco Use of substances other than those prescribed or required for medical reasons: No Advance Directives: No Advance Directives Information Provided: Yes Current occupation: Nurse Meds Allergies Allergy/AdvReac Type Severity Reaction Status Date / Time doxycycline Allergy Severe Anaphylaxis Verified 08/06/20 10:20 penicillin G Allergy Intermediate Hives Verified 08/06/20 10:20 Sulfa (Sulfonamide Allergy Intermediate Hives Verified 08/06/20 10:20 Antibiotics) acetaminophen [From Vicodin] AdvReac Intermediate respiratory Verified 12/16/24 11:43 depression hydrocodone [From Vicodin] AdvReac Intermediate respiratory Verified 12/16/24 11:43 depression Home Medications ?Medication ?Instructions ?Recorded ?Confirmed ?Last Taken ?Type omeprazole 20 mg capsule,delayed 20 mg PO BID 05/26/20 12/16/24 Unknown History release aspirin 81 mg tablet,delayed 81 mg PO DAILY 12/12/24 12/16/24 12/02/24 History release atorvastatin 40 mg tablet 40 mg PO BEDTIME 12/12/24 12/16/24 Unknown History biotin 12/12/24 Unknown History dupilumab 300 mg/2 mL subcutaneous 300 mg subcut Q2W 12/12/24 Unknown History pen injector (Dupixent) meloxicam 15 mg tablet 15 mg PO DAILY 12/12/24 12/16/24 Unknown History semaglutide 2 mg/dose (8 mg/3 mL) 2 mg subcut QWEEK 12/12/24 12/16/24 12/07/24 History subcutaneous pen injector (Ozempic) Exam Airway Mallampati Class: II TM Dist: >3cm Neck ROM: Full Assessment and Plan Assessment Anesthesia Assessment: Anesthesia Plan Discussed Final Anesthetic Review Family History of Problems with Anesthesia: No History of Problems with Anesthesia: No NPO: Yes ASA Class: III Final Preanesthetic Review: No Changes in Pt Med Stat, Meds/Allgs Chart Reviewed, Consent Obtained/Reviewed and Anes Risks/Benef Reviewed Patient Risk: Intermediate Procedure Risk: Low Anesthetic Plan Anesthetic Plan: TIVA Disposition: Standard PACU
[2024-12-16 11:53] VITALS: BP 126/71; PULSE 82; RESP 16; TEMP 37.5; O2SAT 97; BMI 31.4
[2024-12-16 12:40] LABS: Glucose, Whole Blood 74 mg/dL (60-115)
[2024-12-16] MEDS: Lactated Ringers 1,000 ML 100 ML IVCONT (12:40)
[2024-12-16 13:48] VITALS: BP 112/59; PULSE 79; RESP 16; TEMP 36.2; O2SAT 97
--- NOTE | 2024-12-16 13:50 | PM.OP ---
Brief Operative Note Date of Service: 12/16/24 Pre-op diagnosis: Screening Post-op diagnosis: other (Diverticulosis) Procedure: Colonoscopy to the cecum Surgeon: Derek Villaseñor MD Anesthesia: MAC Was an Geophysical Observer used for this Procedure?: No Estimated blood loss (mL): 0 Pathology: none sent Condition: stable Disposition: PACU
[2024-12-16 13:59] LABS: Glucose, Whole Blood 81 mg/dL (60-115)
[2024-12-16 14:00] VITALS: BP 104/58; PULSE 77; RESP 16; O2SAT 97
--- NOTE | 2024-12-16 15:07 | OP_ITS ---
DATE OF SERVICE: 12/16/2024 SURGEON: Derek Villaseñor MD INDICATIONS: The patient presents for evaluation of family history of colorectal cancer and polyps, and colorectal cancer screening. Full consent obtained from her for this, including risks of bleeding and perforation. PREOPERATIVE DIAGNOSIS: POSTOPERATIVE DIAGNOSIS: PROCEDURE PERFORMED: Colonoscopy to cecum. ESTIMATED BLOOD LOSS: COMPLICATIONS: ANESTHESIA: Medication used; monitored anesthesia care. ASSISTANTS: SPECIMENS: PREOPERATIVE DIAGNOSES: Family history of colorectal cancer and polyps, colorectal cancer screening. POSTOPERATIVE DIAGNOSES: Family history of colorectal cancer and polyps, colorectal cancer screening, diverticulosis, internal hemorrhoids. DESCRIPTION OF PROCEDURE: The patient was placed in the left lateral decubitus position. The digital rectal exam revealed no abnormalities. The Olympus video pediatric colonoscope was entered into the rectum and advanced to the cecum with the assistance of abdominal wall pressure. Once in the cecum, I did identify normal-appearing cecal pouch after copious irrigation. I visualized a normal-appearing appendiceal orifice and ileocecal valve, as well as the entire cecum. There was no sign of any mass or ulceration. The scope was then slowly withdrawn assessing all mucosal surfaces carefully. Preparation was excellent. I did not visualize any sign of polyps, colitis, nor angiodysplasia. There was a mild amount of sigmoid diverticulosis. In the rectum, scope was retroflexed visualizing internal hemorrhoids, but no other pathology. The rectal mucosa appeared normal. Scope was straightened and withdrawn from the patient. She tolerated procedure well and was returned to the recovery area in stable condition. IMPRESSION: 1. Diverticulosis. 2. Internal hemorrhoids. PLAN: Given her family history, I would recommend a followup coloscopy in 5 years. She was advised to continue her omeprazole for chronic reflux and Linzess for her chronic constipation. She has remained on a regular diet and recently had negative laboratories for celiac disease. She will see me in the interim on a p.r.n. basis. MD ANGELITA Vazquez/EVETTE / [phone]
== END 2024-12-16 14:25 | disposition home or self-care (01) ==
PROVIDERS: PCP Nurse Practitioner Family; Visit Provider Internal Medicine
PROC: 0DJD8ZZ Inspection of Lower Intestinal Tract, Via Natural or Artificial Opening Endoscopic (ICD-10-PCS; CPT 45378; principal; 2024-12-16 12:30)
DX: Z12.11 Encounter for screening for malignant neoplasm of colon (principal); K57.30 Diverticulosis of large intestine without perforation or abscess without bleeding; K64.8 Other hemorrhoids; Z80.0 Family history of malignant neoplasm of digestive organs; Z83.719 Family history of colon polyps, unspecified; E11.9 Type 2 diabetes mellitus without complications; K90.0 Celiac disease; K21.9 Gastro-esophageal reflux disease without esophagitis; D64.9 Anemia, unspecified; Z79.02 Long term (current) use of antithrombotics/antiplatelets; Z79.82 Long term (current) use of aspirin; Z79.899 Other long term (current) drug therapy
CPT/HCPCS: 45378; 82947; J2704